=== PATIENT | male | born 1975 | race Two or more races ===

== ENCOUNTER 2016-10-16 19:55 | Inpatient (IN) | payer OTHER ==
--- NOTE | 2016-10-16 20:48 | PDOC ---
History of Present Illness - General History Source: Patient Exam Limitations: No Limitations - History of Present Illness Initial Comments: 10/16/16 21:25 The patient is a 41 year old male, with significant past medical history of HLD , who presents today complaining of fever, left sided pain, loss of appetite x3 days. The patient visited his PCP, Dr. Redd, 2 days ago and was prescribed augmentin and ear drops for a bilateral ear infection. The patient denies ear pain right now and believes the ear drops are irritating his ears. He states that he has loss his appetite since the fever began, feels weak, and has been drinking minimal fluids. He has been taking one extra strength tylenol every 4 hours to reduce the fever with the most recent administered at 4:30pm this evening. 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 He also notes that he spent a day barbecuing in a [place]ed park by the [facility] in [place] last weekend. He does not believe he has any insect bites. No sore throat, no ear pain. No chills, nausea, vomiting. No urinary symptoms, flank pain. No chest pain, SOB, cough. Allergies: None reported Social Hx: Tobacco use. PCP- Dr. Faith Redd <Radha Santos - Last Filed: 10/16/16 22:50> <Zelda Wild - Last Filed: 10/17/16 23:32> - General Chief Complaint: Respiratory Stated Complaint: WEAKNESS Time Seen by Provider: 10/16/16 20:40 Past History <Radha Santos - Last Filed: 10/16/16 22:50> - Past Medical History Anemia: No Asthma: No Cancer: No Cardiac Disorders: No CVA: No COPD: No CHF: No Dementia: No Diabetes: No GI Disorders: No Disorders: No HTN: No Hypercholesterolemia: Yes Liver Disease: No Seizures: No Thyroid Disease: No - Psycho/Social/Smoking Cessation Hx Suicidal Ideation: No Smoking History: Current every day smoker Have you smoked in the past 12 months: Yes Number of Cigarettes Smoked Daily: 20 Information on smoking cessation initiated: No 'Breaking Loose' booklet given: 08/21/15 Hx Alcohol Use: Yes (socially) Drug/Substance Use Hx: No Substance Use Type: None Hx Substance Use Treatment: No <Zelda Wild - Last Filed: 10/17/16 23:32> - Past Medical History Allergies/Adverse Reactions: Allergies Allergy/AdvReac Type Severity Reaction Status Date / Time No Known Drug Allergies Allergy Verified 10/16/16 21:35 Home Medications: Ambulatory Orders Atorvastatin Ca [Lipitor] 20 mg PO HS 10/17/16 Ibuprofen 800 mg PO TID PRN #30 tablet 10/17/16 Levofloxacin [Levaquin] 750 mg PO DAILY #4 tab 10/17/16 Review of Systems - Review of Systems Able to Perform ROS?: Yes Comments:: 10/16/16 21:27 GENERAL/CONSTITUTIONAL: +fever, +weakness, +loss of appetite. No chills. HEAD, EYES, EARS, NOSE AND THROAT: No change in vision. No ear pain or discharge. No sore throat. CARDIOVASCULAR: No chest pain or shortness of breath. RESPIRATORY: No cough, wheezing, or hemoptysis. GASTROINTESTINAL: +left sided pain. No nausea, vomiting, diarrhea or constipation. GENITOURINARY: No dysuria, frequency, or change in urination. MUSCULOSKELETAL: No joint or muscle swelling or pain. No neck or back pain. SKIN: No rash NEUROLOGIC: No headache, vertigo, loss of consciousness, or change in strength/ sensation. ALLERGIC/IMMUNOLOGIC: No hives or skin allergy. <Radha Santos - Last Filed: 10/16/16 22:50> *Physical Exam - Vital Signs Last Vital Signs Temp Pulse Resp BP Pulse Ox 101.9 F H 88 18 121/40 96 10/16/16 20:05 10/16/16 20:05 10/16/16 20:05 10/16/16 20:05 10/16/16 20:32 - Physical Exam Comments: 10/16/16 21:28 GENERAL: Awake, alert, and fully oriented, in no acute distress HEAD: No signs of trauma EYES: PERRLA, EOMI, sclera anicteric, conjunctiva clear ENT: Auricles normal inspection, hearing grossly normal, nares patent, oropharynx clear without exudates. Moist mucosa NECK: Normal ROM, supple, no lymphadenopathy, JVD, or masses LUNGS: +Left sided wheezes, + right upper lobe wheezes and crackles HEART: Regular rate and rhythm, normal S1 and S2, no murmurs, rubs or gallops ABDOMEN: Soft, nontender, normoactive bowel sounds. No guarding, no rebound. No masses EXTREMITIES: Normal range of motion, no edema. No clubbing or cyanosis. No cords, erythema, or tenderness NEUROLOGICAL: Cranial nerves II through XII grossly intact. Normal speech, normal gait SKIN: Warm, Dry, normal turgor, no rashes or lesions noted. <Radha Santos - Last Filed: 10/16/16 22:50> - Vital Signs Last Vital Signs Temp Pulse Resp BP Pulse Ox 101.9 F H 88 18 121/40 96 10/16/16 20:05 10/16/16 20:05 10/16/16 20:05 10/16/16 20:05 10/16/16 20:05 <Zelda Wild - Last Filed: 10/17/16 23:32> ED Treatment Course - LABORATORY CBC & Chemistry Diagram: 10/16/16 21:10 10/16/16 21:10 - ADDITIONAL ORDERS Additional order review: 10/16/16 21:10 RBC 4.84 MCV 85.0 MCHC 33.0 RDW 14.2 MPV 9.6 Neutrophils % 65.0 Lymphocytes % 21.7 Monocytes % 10.1 Eosinophils % 2.8 Basophils % 0.4 - RADIOLOGY Radiograph Interpretation: 10/16/16 22:50 EXAM: X-ray chest REASON FOR EXAM: Rule out pneumonia COMPARISON: None. FINDINGS: Right upper lobe airspace opacity. Trace right pleural effusion, seen posterior costophrenic angle. Left lung clear. Heart size normal. IMPRESSION Right upper lobe pneumonia and trace right pleural effusion. Recommend follow-up x-ray in 4 weeks to document complete resolution. THIS DOCUMENT HAS BEEN ELECTRONICALLY SIGNED Daniel Irizarry D.O. <Radha Santos - Last Filed: 10/16/16 22:50> - LABORATORY CBC & Chemistry Diagram: 10/17/16 07:15 10/17/16 07:15 <Zelda Wild - Last Filed: 10/17/16 23:32> Medical Decision Making - Medical Decision Making 10/16/16 21:42 Dr. Redd was paged via paging service at 9:35pm. Awaiting call back. <Radha Santos - Last Filed: 10/16/16 22:50> - Medical Decision Making 10/17/16 23:28 Pt comes with high fever and anorexia, due to illness that he has had for the past week. States that his PMD diagnosed him with bilat OM, and treated with augmentin. Pt has been taking augmentin with no relief. On exam he has upper lobe rhonchi Right side greater than left and he has wheezing throughout. Pt has normal TMs in the ER, minimal injection of a portion of the right TM. Pt will be admitted for upper lobe pneumonia that was seen on the CXR. <Zelda Wild - Last Filed: 10/17/16 23:32> *DC/Admit/Observation/Transfer - Attestations Scribe Attestion: 10/16/16 21:28 Documentation prepared by WILLIAMS Martinez, acting as medical clerk for Zelda Wild MD. <Radha Santos - Last Filed: 10/16/16 22:50> - Discharge Dispostion Admit: Yes <Zelda Wild - Last Filed: 10/17/16 23:32> Diagnosis at time of Disposition: Right upper lobe pneumonia - Discharge Dispostion Condition at time of disposition: Good - Prescriptions - Referrals
[2016-10-16] MEDS ORDERED: IBUPROFEN 400 MG TABLET (FP) PO ONE ×2 (20:59→21:18)
[2016-10-16] MEDS ORDERED: ACETAMINOPHEN 1000 MG/100 ML VIAL (NON FORMULARY) IVPB ONE (20:59)
[2016-10-16] MEDS ORDERED: SODIUM CHLORIDE 0.9% 500 ML INFUS.BAG IV ONE (21:00)
[2016-10-16] MEDS ORDERED: DOXYCYCLINE INJECTION 100 MG in DEXTROSE 5%-WATER - 100 ML IVPB ONE (21:00)
[2016-10-16] MEDS ORDERED: ACETAMINOPHEN INJECTION 100 ML IVPB ONE (21:18)
[2016-10-16 21:19] LABS: BASOPHIL 0.4 % (0-2.0); EOSINOPHIL 2.8 % (0-4.5); MCH 28.1 pg (25.7-33.7); MEAN PLT VOLUME 9.6 fl (7.5-11.1); PLATELET COUNT 93 K/MM3 (134-434); RDW 14.2 % (11.9-15.9); WHITE BLOOD COUNT 8.1 K/mm3 (4.0-10.0)
[2016-10-16] MEDS ORDERED: DOXYCYCLINE HYCLATE 100 MG VIAL ONE (21:19)
[2016-10-16 21:43] LABS: ALK PHOS 61 U/L (45-117); ANION GAP 7 (8-16); BILIRUBIN,TOTAL 0.5 mg/dL (0.2-1.0); CALCIUM 8.8 mg/dL (8.5-10.1); CO2 26 mmol/L (21-32); CREATININE 1.1 mg/dL (0.7-1.3); GLUCOSE,RANDOM 96 mg/dL (74-106); SGOT/AST 27 U/L (15-37); SGPT/ALT 36 U/L (12-78); TOT PROT 6.9 g/dl (6.4-8.2)
--- NOTE | 2016-10-16 22:20 | HP ---
CHIEF COMPLAINT: " my chest hurts" PCP:Dr. Faith Redd HISTORY OF PRESENT ILLNESS: This is a 41 year old male heavy smoker, with PMH of HLD, who presents due to f/ c and malaise since tuesday. Patient visited PCP, Dr. Redd, 3 days ago, was told he has b/l otitis media and ago and prescribed augmentin and steroid ear drops, which has not relieved the fever or night sweats. he also reports loss of appetite. Yesterday he developed a severe cough productive of green sputum. He has been taking tylenol for fever. He denies sob, n/v, h/a, and pain, throat pain, ear pain. He had one episode of nonbloody nonmelenous diarrhea today and an episode of very dark brown/black stool yesterday. 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 He is from [place] but hasnot traveled there recently. He believes he has a TB vaccination as a child. He denies known TB exposure. He denies nightsweats earlier than his fever began or weight loss. He denies rash. He is unsure of whether he ever had a CXR before. 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 Smoking: daily 1 pack x 25 yrs Alcohol:denies Drugs: denies Family History: father at 62 from throat and stomach CA, smoker Allergies No Known Drug Allergies Allergy (Verified 10/16/16 21:35) HOME MEDICATIONS: Home Medications Medication Instructions Recorded Acetaminophen [Mapap] 500 mg PO DAILY 10/16/16 Amoxicillin/Potassium Clav 1 each PO BID 10/16/16 [Amox-Clav 875-125 mg Tablet] Ibuprofen [Motrin -] 200 mg PO DAILY 10/16/16 Neomycin/Polymyxin B Sulf/Hc 10 ml OT DAILY 10/16/16 [Ltrliegv-Nzdlutopo-Qd Ear Soln] REVIEW OF SYSTEMS CONSTITUTIONAL: Absent: weight change HEENT: Absent: rhinorrhea, nasal congestion, throat pain CARDIOVASCULAR: Absent: chest pain, syncope, palpitations, peripheral edema RESPIRATORY: Absent: shortness of breath, hemoptysis GASTROINTESTINAL: Absent: abdominal pain, abdominal distension, nausea, vomiting, diarrhea, constipation GENITOURINARY: Absent: dysuria, genital pain MUSCULOSKELETAL: Absent: myalgia, arthralgia SKIN: Absent: rash, itching, pallor HEMATOLOGIC/IMMUNOLOGIC: Absent: easy bleeding, easy bruising, lymphadenopathy, frequent infections ENDOCRINE: Absent: unexplained weight gain, unexplained weight loss NEUROLOGIC: Absent: headache, focal weakness or paresthesias PSYCHIATRIC: Absent: anxiety, depression PHYSICAL EXAMINATION Vital Signs - 24 hr 10/16/16 10/16/16 20:05 20:32 Temperature 101.9 F H Pulse Rate 88 Respiratory 18 Rate Blood Pressure 121/40 O2 Sat by Pulse 96 96 Oximetry (%) GENERAL: Awake, alert, and fully oriented, in no acute distress, diaphoretic . HEAD: Normal with no signs of trauma. EYES: Pupils equal, round and reactive to light, extraocular movements intact, sclera anicteric, conjunctiva clear. No lid lag. EARS, NOSE, THROAT: R tympanic membrane appears to have clear fluid behind it, absent light reflex, L tympanic membrane clear. Moist mucous membranes. NECK: supple without JVD LUNGS:RUL ronchi and wheeze HEART: Regular rate and rhythm, normal S1 and S2 ABDOMEN: Soft, nontender, not distended, normoactive bowel sounds, no guarding, no rebound, no masses. MUSCULOSKELETAL: No CVA tenderness. UPPER EXTREMITIES: 2+ pulses, warm, well-perfused. No cyanosis. No clubbing. No peripheral edema. LOWER EXTREMITIES: 2+ pulses, warm, well-perfused. No calf tenderness. No peripheral edema. NEUROLOGICAL: Cranial nerves II-XII grossly intact. Normal speech. Normal gait. PSYCHIATRIC: Cooperative. Good eye contact. Appropriate mood and affect. SKIN: Warm, dry Laboratory Results - last 24 hr 10/16/16 10/16/16 10/16/16 21:10 21:10 21:10 WBC 8.1 RBC 4.84 Hgb 13.6 Hct 41.2 MCV 85.0 MCH 28.1 MCHC 33.0 RDW 14.2 Plt Count 93 L MPV 9.6 Neutrophils % 65.0 Lymphocytes % 21.7 Monocytes % 10.1 Eosinophils % 2.8 Basophils % 0.4 Sodium 138 Potassium 3.7 Chloride 105 Carbon Dioxide 26 Anion Gap 7 L BUN 11 Creatinine 1.1 Creat Clearance w eGFR > 60 Random Glucose 96 Lactic Acid Calcium 8.8 Total Bilirubin 0.5 AST 27 ALT 36 Alkaline Phosphatase 61 LD Total 254 H Total Protein 6.9 Albumin 4.0 10/16/16 21:16 WBC RBC Hgb Hct MCV MCH MCHC RDW Plt Count MPV Neutrophils % Lymphocytes % Monocytes % Eosinophils % Basophils % Sodium Potassium Chloride Carbon Dioxide Anion Gap BUN Creatinine Creat Clearance w eGFR Random Glucose Lactic Acid 1.4 Calcium Total Bilirubin AST ALT Alkaline Phosphatase LD Total Total Protein Albumin ASSESSMENT/PLAN: This is a 41 year old male heavy smoker, with PMH of HLD, who presents due to f/ c and malaise since tuesday. Right Upper Lobe PNA, likely CAP -CXR shows RUL infiltrate in a heavy smoker. -cant r/u underlying mass, recommend outpatient pulm f/u with repeat CXR -fever 101.9 but no leukocytosis, likley due to recent abx course; does not meet SIRS criteria -possible MRSA risk factors due to occupation, upon literature review, its unlikely to be significant. patient given one dose of IV abx to cover HCAP -possibly immunized against Tb in past, will order PPD -blood and sputum cultures, lyme disease w/u -IVF -tylenol PRN -lyme disease studies, legionella antigen and culture HLD -resume home meds Daily smoker -cessation counseling Dispo: obs med rasta Problem List - Problem (1) Right upper lobe pneumonia Code(s): J18.1 - LOBAR PNEUMONIA, UNSPECIFIED ORGANISM (2) HLD (hyperlipidemia) Code(s): E78.5 - HYPERLIPIDEMIA, UNSPECIFIED Visit type - Emergency Visit Emergency Visit: Yes ED Registration Date: 10/16/16 Care time: The patient presented to the Emergency Department on the above date and was hospitalized for further evaluation of their emergent condition. - New Patient This patient is new to me today: Yes Date on this admission: 10/17/16 - Critical Care Critical Care patient: No
[2016-10-16 23:39] LABS: URINE APPEARANCE CLEAR; URINE BILIRUBIN NEGATIVE (NEGATIVE); URINE COLOR YELLOW; URINE GLUCOSE (UA) NEGATIVE (NEGATIVE); URINE KETONE TRACE (NEGATIVE); URINE LEUK ESTERASE NEGATIVE (NEGATIVE); URINE NITRITE NEGATIVE (NEGATIVE); URINE PROTEIN NEGATIVE (NEGATIVE); URINE UROBILINOGEN NEGATIVE E.U./dl (0.2-1.0)
[2016-10-16 23:42] LABS: URINE BLOOD 2+ (NEGATIVE)
[2016-10-16 23:43] LABS: URINE MUCUS RARE; URINE RBC 4 /hpf (0-3); URINE WBC 2 /hpf (3-5)
[2016-10-17] MEDS ORDERED: PIPERACILLIN/TAZOB 4.5 GM/100 ML PRE-DOCKED IVPB SCH ×2 (00:45→03:00)
[2016-10-17] MEDS ORDERED: VANCOMYCIN 1 GRAM (PRE-DOCKED) 1,000 MG/250 ML BAG IVPB SCH ×2 (00:45→01:15)
--- NOTE | 2016-10-17 00:48 | HP ---
CHIEF COMPLAINT: Chest pain PCP: Dr. Redd HISTORY OF PRESENT ILLNESS: 41 year old male with a pmh of HLD and 20-30 pack year smoker presents to the ED for uncontrolled fevers since Tuesday. Patient went to his PCP on and was told he had bilateral otitis media. He prescribed augmentin, which has not helped his fevers. He reports chills, night sweats, loss of appetite, and cough productive of yellow/green sputum. Patient denies headache, shortness of breath, N/V, or otalgia. Of note, patient is from [place] but has not travelled there. He believes he is vaccinated for TB and has not had any contact with anyone who has TB. 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 ER course was notable for: (1) CXR (2) CBC/BMP (3) Fluids, tylenol, and doxycycline Recent Travel: no PAST MEDICAL HISTORY: HLD PAST SURGICAL HISTORY: L testicular torsion Social History: Smoking: yes, 20-30 years, 1 ppd Alcohol: No Drugs: No Family History: Father in his 60s from cancer- also a smoker Allergies No Known Drug Allergies Allergy (Verified 10/16/16 21:35) HOME MEDICATIONS: Home Medications Medication Instructions Recorded Acetaminophen [Mapap] 500 mg PO DAILY 10/16/16 Amoxicillin/Potassium Clav 1 each PO BID 10/16/16 [Amox-Clav 875-125 mg Tablet] Ibuprofen [Motrin -] 200 mg PO DAILY 10/16/16 Neomycin/Polymyxin B Sulf/Hc 10 ml OT DAILY 10/16/16 [Luvgdpek-Dltwxlkyi-Sn Ear Soln] Atorvastatin Ca [Lipitor] 20 mg PO HS 10/17/16 REVIEW OF SYSTEMS CONSTITUTIONAL: Absent: diaphoresis, generalized weakness, weight change Positive: fever, chills, night sweats, malaise, loss of appetite HEENT: Absent: rhinorrhea, nasal congestion, throat pain, throat swelling, difficulty swallowing, mouth swelling, ear pain, eye pain, visual changes CARDIOVASCULAR: Absent: chest pain, syncope, palpitations, irregular heart rate, lightheadedness , peripheral edema RESPIRATORY: Absent: shortness of breath, dyspnea with exertion, orthopnea, wheezing, stridor , hemoptysis Present: cough productive of yellow/green sputum GASTROINTESTINAL: Absent: abdominal pain, abdominal distension, nausea, vomiting, diarrhea, constipation, melena, hematochezia GENITOURINARY: Absent: dysuria, frequency, urgency, hesitancy, hematuria, flank pain, genital pain MUSCULOSKELETAL: Absent: myalgia, arthralgia, joint swelling, back pain, neck pain SKIN: Absent: rash, itching, pallor HEMATOLOGIC/IMMUNOLOGIC: Absent: easy bleeding, easy bruising, lymphadenopathy, frequent infections ENDOCRINE: Absent: unexplained weight gain, unexplained weight loss, heat intolerance, cold intolerance NEUROLOGIC: Absent: headache, focal weakness or paresthesias, dizziness, unsteady gait, seizure, mental status changes, bladder or bowel incontinence PSYCHIATRIC: Absent: anxiety, depression, suicidal or homicidal ideation, hallucinations. PHYSICAL EXAMINATION Vital Signs - 24 hr 10/16/16 23:27 Temperature 99.8 F H Pulse Rate [ 84 Left] Respiratory 17 Rate Blood Pressure 120/52 [Left Arm] O2 Sat by Pulse 98 Oximetry (%) GENERAL: Awake, alert, and fully oriented, in no acute distress. HEAD: Normal with no signs of trauma. EYES: Pupils equal, round and reactive to light, extraocular movements intact, sclera anicteric, conjunctiva clear. No lid lag. EARS, NOSE, THROAT: L Tympanic membrane normal. R tympanic membrane with no light reflex, oropharynx clear without exudates. Moist mucous membranes. NECK: Normal range of motion, supple without lymphadenopathy, JVD, or masses. LUNGS: Breath sounds equal, RUQ wheezing and ronchi, no crackles. No accessory muscle use. HEART: Regular rate and rhythm, normal S1 and S2 without murmur, rub or gallop. ABDOMEN: Soft, nontender, not distended, normoactive bowel sounds, no guarding, no rebound, no masses. No hepatomegaly or splenomegaly. MUSCULOSKELETAL: Normal range of motion at all joints. No bony deformities or tenderness. No CVA tenderness. UPPER EXTREMITIES: 2+ pulses, warm, well-perfused. No cyanosis. No clubbing. No peripheral edema. LOWER EXTREMITIES: 2+ pulses, warm, well-perfused. No calf tenderness. No peripheral edema. NEUROLOGICAL: Cranial nerves II-XII intact. Normal speech. Normal gait. PSYCHIATRIC: Cooperative. Good eye contact. Appropriate mood and affect. SKIN: Warm, dry, normal turgor, no rashes or lesions noted, normal capillary refill. Laboratory Results - last 24 hr 10/16/16 23:30 Urine Color Yellow Urine Appearance Clear Urine pH 5.0 Urine Protein Negative Urine Glucose (UA) Negative Urine Ketones Trace H Urine Blood 2+ H Urine Nitrite Negative Urine Bilirubin Negative Urine Urobilinogen Negative Ur Leukocyte Esterase Negative Urine RBC 4 Urine WBC 2 Urine Mucus Rare ASSESSMENT/PLAN: 41 year old male pmh of HLD and heavy smoking hx who presents with fever, chills , and night sweats. 1. Pneumonia, Right upper lobe -Cannot r/o hospital acquired due to occupational history -Cannot r/o malignancy due to smoking and family hx -Start Vancomycin 1g IV and Zosyn 4.5gm Q6 Iv -Bcx & sputum cultures -IVF @ 125 cc/hr -Tylenol 650 mg PRN 2. HLD - Start home lipitor 20 mg PO hs Visit type - Emergency Visit Emergency Visit: Yes ED Registration Date: 10/16/16 Care time: The patient presented to the Emergency Department on the above date and was hospitalized for further evaluation of their emergent condition. - New Patient This patient is new to me today: Yes Date on this admission: 10/17/16 - Critical Care Critical Care patient: No
[2016-10-17] MEDS ORDERED: VANCOMYCIN 1 GRAM (PRE-DOCKED) 1,000 MG/250 ML BAG IVPB ONE (01:15)
[2016-10-17] MEDS: SODIUM CHLORIDE 1,000 ML IV SCH ×2 (01:19→12:30)
[2016-10-17] MEDS ORDERED: PIPERACILLIN/TAZOB 4.5 GM/100 ML PRE-DOCKED IVPB ONE (02:00)
[2016-10-17 02:34] VITALS: BMI 31.2
[2016-10-17] MEDS ORDERED: diphenhydrAMINE HCL 25 MG CAPSULE (FP) PO ONE (03:21)
--- NOTE | 2016-10-17 05:44 | PN ---
Teaching Attending Note Name of Resident: Jesu Gann ATTENDING PHYSICIAN STATEMENT I saw and evaluated the patient. I reviewed chart, data, and imaging I reviewed the resident's note and discussed the case with the resident. I agree with the resident's findings and plan as documented except for modifications in attending note. SUBJECTIVE: 41 year old male from [place] with a pmh of dyslipidemia, testicular torsion, and 25 pack year smoker c/o fevers up to 101F, chills and some productive cough since 10/12. Saw PCP on 10/14 prescribed Augmentin for suspected Otitis Media with no improvement in fevers. Drives patients in taxi. No significant weight loss, hemotypysis or TB contacts. No prior history of TB. Received Doxycycline in ER. Patient denied tick bites, bug bites. Did not notice ticks on skin recently. No recent travels. No TB exposure. ROS- negative except for above No Known Drug Allergies Allergy OBJECTIVE: Last Vital Signs Temp Pulse Resp BP Pulse Ox 97.7 F 55 L 18 129/78 100 10/17/16 03:53 10/17/16 03:53 10/17/16 03:53 10/17/16 03:53 10/17/16 00:08 General- appears comfortable , speaks in full sentences HEENT - AT , NC, no sinus tenderness, no ear tenderness Neck- supple CV- s1+S2+ RRR no murmurs CHest- right upper lobe crackles, rhonchi Abdomen- soft, nt, no masses Skin - no rashes appreciated Ext- no edema or swelling Laboratory Results - last 24 hr 10/16/16 10/16/16 10/16/16 21:10 21:10 21:10 WBC 8.1 RBC 4.84 Hgb 13.6 Hct 41.2 MCV 85.0 MCH 28.1 MCHC 33.0 RDW 14.2 Plt Count 93 L MPV 9.6 Neutrophils % 65.0 Lymphocytes % 21.7 Monocytes % 10.1 Eosinophils % 2.8 Basophils % 0.4 Sodium 138 Potassium 3.7 Chloride 105 Carbon Dioxide 26 Anion Gap 7 L BUN 11 Creatinine 1.1 Creat Clearance w eGFR > 60 Random Glucose 96 Lactic Acid Calcium 8.8 Total Bilirubin 0.5 AST 27 ALT 36 Alkaline Phosphatase 61 LD Total 254 H Total Protein 6.9 Albumin 4.0 Urine Color Urine Appearance Urine pH Urine Protein Urine Glucose (UA) Urine Ketones Urine Blood Urine Nitrite Urine Bilirubin Urine Urobilinogen Ur Leukocyte Esterase Urine RBC Urine WBC Urine Mucus 10/16/16 10/16/16 21:16 23:30 WBC RBC Hgb Hct MCV MCH MCHC RDW Plt Count MPV Neutrophils % Lymphocytes % Monocytes % Eosinophils % Basophils % Sodium Potassium Chloride Carbon Dioxide Anion Gap BUN Creatinine Creat Clearance w eGFR Random Glucose Lactic Acid 1.4 Calcium Total Bilirubin AST ALT Alkaline Phosphatase LD Total Total Protein Albumin Urine Color Yellow Urine Appearance Clear Urine pH 5.0 Urine Protein Negative Urine Glucose (UA) Negative Urine Ketones Trace H Urine Blood 2+ H Urine Nitrite Negative Urine Bilirubin Negative Urine Urobilinogen Negative Ur Leukocyte Esterase Negative Urine RBC 4 Urine WBC 2 Urine Mucus Rare ASSESSMENT AND PLAN: #Community Acquired Pneumonia with consolidation visible on right upper lobe on CXR. Symptoms persisted despite PO augmentin. Low suspicion of TB. Should r/o tick borne causes of fever such as Lyme disease, Babesiosis, Erlichia, Anaplasma. -admit to med/surg -sputum culture -blood culture x2 -legionella urine ag -legionella sputum culture -Lyme serology -Babesia PCR -Blood parasite smear -Erlichia buffy coat smear -anaplasma serolgoy -Levofloxacin 750mg IV #Hematuria- asymptomatic -repeat UA -consider evaluation if persistent RBC+ in urine #Tobacco use -counseled on smoking cessation and how smoking increases risk for PNA #DVT ppx- low risk -SCD #diet -low cholesterol diet
[2016-10-17 08:36] LABS: BASOPHIL 0.4 % (0-2.0); EOSINOPHIL 3.1 % (0-4.5); MCH 28.6 pg (25.7-33.7); MCHC 33.6 g/dl (32.0-35.9); MEAN CELL VOLUME 85.2 fl (80-96); MEAN PLT VOLUME 9.8 fl (7.5-11.1); PLATELET COUNT 86 K/MM3 (134-434); RDW 14.5 % (11.9-15.9); WHITE BLOOD COUNT 7.3 K/mm3 (4.0-10.0)
[2016-10-17 09:18] LABS: ANION GAP 5 (8-16); CO2 27 mmol/L (21-32); CREATININE 1.1 mg/dL (0.7-1.3); GLUCOSE,RANDOM 78 mg/dL (74-106)
[2016-10-17] MEDS ORDERED: LEVOFLOXACIN 750 MG IVPB 150 ML IVPB SCH (10:00)
[2016-10-17] MEDS: ACETAMINOPHEN 325 MG TABLET (FP) PO PRN ×2 (10:09→16:22)
[2016-10-17 11:21] LABS: URINE APPEARANCE CLEAR; URINE BILIRUBIN NEGATIVE (NEGATIVE); URINE COLOR LTYELLOW; URINE GLUCOSE (UA) NEGATIVE (NEGATIVE); URINE KETONE NEGATIVE (NEGATIVE); URINE LEUK ESTERASE NEGATIVE (NEGATIVE); URINE NITRITE NEGATIVE (NEGATIVE); URINE PROTEIN NEGATIVE (NEGATIVE); URINE UROBILINOGEN NEGATIVE E.U./dl (0.2-1.0)
[2016-10-17 11:23] LABS: URINE BLOOD 2+ (NEGATIVE)
[2016-10-17 11:25] LABS: URINE RBC 3 /hpf (0-3); URINE WBC 2 /hpf (3-5)
--- NOTE | 2016-10-17 11:52 | CON.PULM ---
Consult Consult Specialty:: PULMONARY Referred by:: Dr. Chi Reason for Consultation:: pneumonia - History of Present Illness Chief Complaint: fever History of Present Illness: 41yo male with h/o hyperlipidemia originally from [place] who presents with generalized weakness and fevers since 10/12. Saw his PMD on 10/14 who prescribed him augmentin for otitis media without improvement. He reports a cough productive of green sputum along with subjective fevers and chills. Was in his usual state of health prior to this episode. Denies any unintentional weight loss. Reports BCG vaccination as a child, no known PPD status. 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 No sick contacts or recent travel. - History Source History Provided By: Patient, Medical Record Limitations to Obtaining History: No Limitations - Past Medical History Cardio/Vascular: Yes: Hyperlipdemia - Alcohol/Substance Use Hx Alcohol Use: Yes (socially) - Smoking History Smoking history: Current every day smoker Have you smoked in the past 12 months: Yes Aproximately how many cigarettes per day: 20 Home Medications - Allergies Allergies/Adverse Reactions: Allergies Allergy/AdvReac Type Severity Reaction Status Date / Time No Known Drug Allergies Allergy Verified 10/16/16 21:35 - Home Medications Home Medications: Ambulatory Orders Acetaminophen [Mapap] 500 mg PO DAILY 10/16/16 Amoxicillin/Potassium Clav [Amox-Clav 875-125 mg Tablet] 1 each PO BID 10/16/16 Ibuprofen [Motrin -] 200 mg PO DAILY 10/16/16 Neomycin/Polymyxin B Sulf/Hc [Glnxwkea-Wquociwig-Ys Ear Soln] 10 ml OT DAILY 11/25 Atorvastatin Ca [Lipitor] 20 mg PO HS 10/17/16 Review of Systems - Review of Systems Constitutional: reports: Chills, Fever, Malaise, Weakness. denies: Unintentional Wgt. Loss Eyes: denies: Recent Change in Vision HENT: reports: Ear Pain. denies: Nasal Congestion, Throat Pain Neck: denies: Stiffness, Tenderness Cardiovascular: denies: Chest Pain, Palpitations, Shortness of Breath Respiratory: reports: Cough. denies: Hemoptysis, Wheezing Gastrointestinal: denies: Abdominal Pain, Nausea, Vomiting Genitourinary: denies: Dysuria, Hematuria Neurological: denies: Dizziness, Headache Endocrine: denies: Unexplained Weight Loss Physical Exam Vital Sings: Vital Signs Temperature 97 F L 10/17/16 07:40 Pulse Rate 52 L 10/17/16 07:40 Respiratory Rate 20 10/17/16 07:40 Blood Pressure 129/61 10/17/16 07:40 O2 Sat by Pulse Oximetry (%) 100 10/17/16 00:08 Constitutional: Yes: Calm, Diaphoresis Eyes: Yes: Conjunctiva Clear, EOM Intact HENT: Yes: Atraumatic, Normocephalic Neck: Yes: Supple, Trachea Midline. No: Lymphadenopathy Cardiovascular: Yes: Regular Rate and Rhythm Respiratory: Yes: Regular, CTA Bilaterally ...Clubbing: No Gastrointestinal: Yes: Normal Bowel Sounds, Soft. No: Tenderness Edema: No Neurological: Yes: Alert, Oriented Labs: CBC, BMP 10/17/16 07:15 10/17/16 07:15 Imaging - Results Chest X-ray: Report Reviewed, Image Reviewed (RUL infiltrate) Problem List - Problems (1) HLD (hyperlipidemia) Code(s): E78.5 - HYPERLIPIDEMIA, UNSPECIFIED (2) Right upper lobe pneumonia Code(s): J18.1 - LOBAR PNEUMONIA, UNSPECIFIED ORGANISM (3) Smoker Code(s): F17.200 - NICOTINE DEPENDENCE, UNSPECIFIED, UNCOMPLICATED Assessment/Plan Pneumonia likely Community Acquired Smoker - antibiotics as ordered - send sputum cultures - low suspicion for TB due to acuity of symptoms but would place PPD and send quantiferon gold - CT chest noncontrast for further evaluation - will need follow up imaging in 6-8 weeks to ensure resolution of infiltrate - advised further inpatient work up but pt unwilling to stay and will follow up with his PMD Thank you for this consult Juan C Woods MD
[2016-10-17] MEDS ORDERED: TUBERCULIN PPD 5 TU/0.1ML SYRINGE (IN PATIENT USE ONLY) ID ONE (12:00)
[2016-10-17 13:29] VITALS: BP 117/75; PULSE 61; TEMP 98.6
--- NOTE | 2016-10-17 17:15 | DS ---
Physical Exam: SUBJECTIVE: Patient seen and examined. He is feeling better. OBJECTIVE: Vital Signs Period Temp Pulse Resp BP Sys/Baltazar Pulse Ox Last 24 Hr 97 F-99.8 F 52-84 17-20 108-144/52-78 94-100 PHYSICAL EXAM GENERAL: The patient is awake, alert, and fully oriented, in no acute distress. LUNGS: Breath sounds equal, crackles at right apex. HEART: Regular rate and rhythm, S1, S2 without murmur, rub or gallop. ABDOMEN: Soft, nontender, nondistended, normoactive bowel sounds, no guarding, no rebound, no hepatosplenomegaly, no masses. EXTREMITIES: 2+ pulses, warm, well-perfused, no edema. LABS Laboratory Results - last 24 hr 10/16/16 10/17/16 10/17/16 23:30 07:15 07:15 WBC 7.3 RBC 4.71 Hgb 13.5 Hct 40.1 MCV 85.2 MCH 28.6 MCHC 33.6 RDW 14.5 Plt Count 86 L MPV 9.8 Neutrophils % 64.0 Lymphocytes % 21.2 Monocytes % 11.3 H Eosinophils % 3.1 Basophils % 0.4 Sodium 143 Potassium 4.0 Chloride 111 H Carbon Dioxide 27 Anion Gap 5 L BUN 11 Creatinine 1.1 Random Glucose 78 Calcium 8.0 L Urine Color Yellow Urine Appearance Clear Urine pH 5.0 Ur Specific [place] 1.010 Urine Protein Negative Urine Glucose (UA) Negative Urine Ketones Trace H Urine Blood 2+ H Urine Nitrite Negative Urine Bilirubin Negative Urine Urobilinogen Negative Ur Leukocyte Esterase Negative Urine RBC 4 Urine WBC 2 Urine Mucus Rare 10/17/16 10:00 WBC RBC Hgb Hct MCV MCH MCHC RDW Plt Count MPV Neutrophils % Lymphocytes % Monocytes % Eosinophils % Basophils % Sodium Potassium Chloride Carbon Dioxide Anion Gap BUN Creatinine Random Glucose Calcium Urine Color Ltyellow Urine Appearance Clear Urine pH 6.0 Ur Specific [place] 1.015 Urine Protein Negative Urine Glucose (UA) Negative Urine Ketones Negative Urine Blood 2+ H Urine Nitrite Negative Urine Bilirubin Negative Urine Urobilinogen Negative Ur Leukocyte Esterase Negative Urine RBC 3 Urine WBC 2 Urine Mucus HOSPITAL COURSE: Date of Admission:10/16/16 Date of Discharge: 10/17/16 Minutes to complete discharge: 30 Discharge Summary Reason For Visit: RIGHT UPPER LOBE PNEUMONIA Current Active Problems Microscopic hematuria (Acute) Right upper lobe pneumonia (Acute) HLD (hyperlipidemia) (Chronic) Nicotine dependence (Chronic) Hospital Course: This is a 41-year-old man who presented to the ER on 10/16 complaining of fever and productive cough. He first developed fever on 10/12. His cough has been productive of yellow and brown sputum. On 10/14, he went to his PCP and was diagnosed with otitis media. He was started on Augmentin and Cortisporin ear drops. Despite this, he continued to have fevers. In the ER, he had a fever of 101.9. WBC was 8.1, lactic acid 1.4. Chest x-ray showed a RUL infiltrate. He was treated in the ER with Doxycycline. He was admitted for treatment of pneumonia. 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 This was then changed to Levaquin to treat community-acquired pneumonia. He was seen by Dr. Woods. Suspicion for tuberculosis was low. He reported receiving BCG as a child. PPD was placed and quantiferon gold was ordered. Urine was negative for Legionella and Pneumococcal antigens. Blood, urine and sputum cultures are pending. With treatment, he felt better. He was afebrile while in the hospital. Chest CT was done and showed extensive RUL consolidation with trace effusion. He did not want to stay in the hospital for further evaluation. He is being discharged on October 17. He is advised to see his PCP, Dr. Faith Redd, on 10/19 to have the PPD read and follow-up on hematuria. He is advised to stop smoking. He is advised to schedule an appointment to follow-up with Dr. Woods within 1 week. Quantiferon gold and the cultures will be followed-up on. He will need repeat chest imaging in 6-8 weeks. He is advised to return to the ER if he continues to have fevers, develops shortness of breath or hemoptysis. Condition: Good - Instructions Diet, Activity, Other Instructions: You may resume activity and diet as prior to admission. Take the first dose of Levofloxacin tomorrow morning. Please schedule an appointment with Dr. Faith Redd on TuesdayOctober 19 to have your PPD read. Return to the ER if you have continued fevers, shortness of breath. Referrals: Faith Redd [Primary Care Provider] - 10/19/16 Juan C Woods MD, MD [Staff Physician] - 1 Week Disposition: HOME - Home Medications Comprehensive Discharge Medication List: Ambulatory Orders Atorvastatin Ca [Lipitor] 20 mg PO HS 10/17/16 Ibuprofen 800 mg PO TID PRN #30 tablet 10/17/16 Levofloxacin [Levaquin] 750 mg PO DAILY #4 tab 10/17/16 Problem List - Problems (1) Nicotine dependence Code(s): F17.200 - NICOTINE DEPENDENCE, UNSPECIFIED, UNCOMPLICATED (2) Right upper lobe pneumonia Code(s): J18.1 - LOBAR PNEUMONIA, UNSPECIFIED ORGANISM (3) HLD (hyperlipidemia) Code(s): E78.5 - HYPERLIPIDEMIA, UNSPECIFIED (4) Microscopic hematuria Code(s): R31.29 - OTHER MICROSCOPIC HEMATURIA This patient is new to me today: Yes Date on this admission: 10/17/16 Emergency Visit: Yes ED Registration Date: 10/16/16 Care time: The patient presented to the Emergency Department on the above date and was hospitalized for further evaluation of their emergent condition. Critical Care patient: No - Discharge Referral Referred to [facility] No
[2016-10-17] MEDS ORDERED: ATORVASTATIN CA 20 MG TABLET (FP) PO SCH (22:00)
--- NOTE | 2016-10-18 13:49 | EKG ---
Test Reason : Blood Pressure : / mmHG Vent. Rate : 063 BPM Atrial Rate : 063 BPM P-R Int : 146 ms QRS Dur : 098 ms QT Int : 398 ms P-R-T Axes : 059 033 020 degrees QTc Int : 407 ms NORMAL SINUS RHYTHM NORMAL ECG NO PREVIOUS ECGS AVAILABLE Confirmed by KARL DAVIES MD ([id number]) on 10/18/2016 1:48:42 PM Referred By: Confirmed By:KARL DAVIES MD
== END 2016-10-17 18:10 | disposition home or self-care (01) | DRG 139 ==
LOC: JER 19:55 → J5S 22:37 → JER 23:31
PROVIDERS: ADMIT Internal Medicine; ATTEND Internal Medicine
DX: J18.9 Pneumonia, unspecified organism (principal); R31.29 Other microscopic hematuria; E78.5 Hyperlipidemia, unspecified; F17.210 Nicotine dependence, cigarettes, uncomplicated; E87.2 Acidosis
CPT/HCPCS: 36415; 71020-TC; 71250-TC; 80048; 80053; 81003; 81015; 83605; 83615; 85025; 86480; 87040; 87070; 87086; 87205; 87207; 87476; 87899; 93005; 93010; 99283-25